=== PATIENT | female | born 1990 | race Caucasian/White ===

== ENCOUNTER 2025-07-18 14:31 | Emergency (ER) | payer SELFPAY ==
[~2025-07-18] VITALS: Ht 180.3 cm; Wt 65.8 kg
[2025-07-18] MEDS ORDERED: LIDOCAINE 1% INJ 50 ML MDV IJ ONE (16:35)
[2025-07-18] MEDS ORDERED: SULFAMETH/TRIMETH 800/160 MG 1 UDTAB TABLET ONE (17:05)
[2025-07-18] MEDS: SULFAMETH/TRIMETH 800/160 MG 1 UDTAB TABLET PO ONE (17:06)
[2025-07-18] MEDS ORDERED: MUPI22OI7 MC (17:18)
[2025-07-18] MEDS ORDERED: AMOX-430 PO (17:18)
[2025-07-18] MEDS ORDERED: SULF1TAB48 PO (17:18)
[2025-07-18 17:21] VITALS: BP 116/77; TEMP 98.3; O2SAT 98
== END 2025-07-18 17:21 | disposition home or self-care (01) ==
LOC: ER 14:36
DX: J34.0 Abscess, furuncle and carbuncle of nose (principal); Z79.2 Long term (current) use of antibiotics
CPT/HCPCS: 99283; 10060; J3490